=== PATIENT | male | born 1930 | race Asian ===

== ENCOUNTER → 2018-03-28 | Outpatient (CLI) | payer MEDICARE, OTHER ==
[~2018-03-28] MED LIST: APIX2.5T PO; ASPI81 PO; CLOP75TA17 PO; FURO20 PO; ISOS60TA4 PO; METO25 PO; MONT10TA21 PO; OLME20TA10 PO; OMEP20 PO; RANO500T3 PO; SIMV-260 PO; TAMS0.4C32 PO; TNFMISC; TRAM50TA4 PO
== END | disposition home or self-care (01) ==
LOC: RADPV 09:50
PROVIDERS: ATTEND Internal Medicine Nephrology
DX: I12.9 Hypertensive chronic kidney disease with stage 1 through stage 4 chronic kidney disease, or unspecified chronic kidney disease (principal); N18.9 Chronic kidney disease, unspecified
CPT/HCPCS: 76770